=== PATIENT | male | born 1985 | race Two or more races ===

== ENCOUNTER 2017-08-30 22:05 | Emergency (ER) | payer OTHER ==
[~2017-08-30] VITALS: Ht 180.3 cm; Wt 59.0 kg
[2017-08-30] MEDS ORDERED: FLUO10 PO (22:16)
[2017-08-30] MEDS ORDERED: ONDA4ODT MM (22:16)
[2017-08-30] MEDS ORDERED: PALI3TAB (22:16)
[2017-08-30 22:47] LABS: Influenza A Negative (NEGATIVE); Influenza B Positive (NEGATIVE)
[2017-08-30 22:49] LABS: BASOPHILS ABSOLUTE AUTO 0.01 K/mm3 (0.00-0.23); BASOPHILS PERCENT AUTO 0 % (0-2); EOSINOPHILS ABSOLUTE AUTO 0.06 K/mm3 (0.00-0.68); EOSINOPHILS PERCENT AUTO 1 % (0-6); Hematocrit 37.3 % (37.0-53.0); Hemoglobin 12.3 g/dL (13.5-17.5); IMMATURE GRAN ABSOLUTE AUTO 0.03 K/mm3 (0.00-0.10); IMMATURE GRAN PERCENT AUTO 0 % (0-1); LYMPHOCYTES ABSOLUTE AUTO 0.45 K/mm3 (0.84-5.20); LYMPHOCYTES PERCENT AUTO 5 % (21-46); MONOCYTES ABSOLUTE AUTO 1.37 K/mm3 (0.16-1.47); MONOCYTES PERCENT AUTO 16 % (4-13); Mean Corpuscular HGB 31.1 pg (26.0-34.0); Mean Corpuscular Volume 94 fL (80-100); Mean Platelet Volume 10.1 fL (9.1-12.4); NEUTROPHILS ABSOLUTE AUTO 6.81 K/mm3 (1.96-9.15); NEUTROPHILS PERCENT AUTO 78 % (41-73); Platelet Count 265 K/mm3 (150-400); RDW Coefficient Variation 12.2 % (11.7-14.2); RDW Standard Deviation 42.5 fL (35.1-46.3); Red Blood Cell Count 3.95 M/mm3 (4.30-5.90); White Blood Cell Count 8.73 K/mm3 (4.00-11.30)
[2017-08-30 23:06] LABS: Alanine Aminotransfer (ALT/SGP 21 U/L (12-78); Albumin, Blood 3.7 g/dL (3.4-5.0); Albumin/Globulin Ratio 1.1 (0.8-1.8); Alk Phos 48 U/L (50-136); Anion Gap 6 mmol/L (6-16); Aspartate Aminotrans (AST/SGOT 16 U/L (12-37); Bilirubin, Total 0.4 mg/dL (0.1-1.0); Blood Urea Nitrogen 9 mg/dL (8-24); Bun/Creatinine Ratio 9.1 (12.0-20.0); CO2, Blood 29 mmol/L (21-32); Calcium, Blood 8.4 mg/dL (8.5-10.1); Chloride, Blood 104 mmol/L (98-108); Creatinine, Blood 0.99 mg/dL (0.60-1.20); Globulin, Blood 3.4 g/dL (2.2-4.0); Glomerular Filtration Rate >60 (60-); Glucose, Blood 109 mg/dL (70-99); Potassium, Blood 3.6 mmol/L (3.5-5.5); Sodium, Blood 139 mmol/L (136-145); Total Protein, Blood 7.1 g/dL (6.4-8.2)
[2017-08-30] MEDS ORDERED: Tylenol325 MG PO (23:48)
[2017-08-30] MEDS ORDERED: Tamiflu75 MG PO (23:48)
== END 2017-08-30 23:53 | disposition home or self-care (01) ==
LOC: ER 22:05
PROVIDERS: Emergency Medicine
DX: J10.1 Influenza due to other identified influenza virus with other respiratory manifestations (principal); Z79.899 Other long term (current) drug therapy
CPT/HCPCS: 36415; 71046; 80053; 85025; 87804; 99283

== ENCOUNTER 2018-02-13 15:48 | Emergency (ER) | payer OTHER ==
[~2018-02-13] VITALS: Ht 180.3 cm; Wt 54.4 kg
[~2018-02-13 15:48] MED LIST: FLUO10 PO; ONDA4ODT MM; PALI3TAB PO; Tamiflu75 MG PO; Tylenol325 MG PO
[2018-02-13] MEDS ORDERED: DULO30 (16:26)
== END 2018-02-13 18:00 | disposition home or self-care (01) ==
LOC: ER 15:48
DX: F32.9 Major depressive disorder, single episode, unspecified (principal)
CPT/HCPCS: 99284

== ENCOUNTER 2018-05-29 16:10 | Emergency (ER) | payer OTHER ==
[~2018-05-29] VITALS: Ht 180.3 cm; Wt 54.5 kg
[~2018-05-29 16:10] MED LIST changes: +DULO30
[2018-05-29] MEDS ORDERED: ALBU90OI INH (18:20)
== END 2018-05-29 18:30 | disposition home or self-care (01) ==
LOC: ER 16:10
DX: J45.909 Unspecified asthma, uncomplicated (principal); Z79.899 Other long term (current) drug therapy
CPT/HCPCS: 71046; 99285-25

== ENCOUNTER → 2020-04-01 | Outpatient (CLI) | payer OTHER ==
[~2020-04-01] MED LIST changes: +ALBU90OI INH
== END | disposition home or self-care (01) ==
LOC: LAB 19:13 → LAB SHORT 19:13
DX: Z20.828 Contact with and (suspected) exposure to other viral communicable diseases (principal)
CPT/HCPCS: U0003

== ENCOUNTER → 2020-05-05 | Outpatient (CLI) | payer OTHER ==
[2020-05-05 19:56] LABS: BASOPHILS ABSOLUTE AUTO 0.02 K/mm3 (0.00-0.23); BASOPHILS PERCENT AUTO 0 % (0-2); EOSINOPHILS ABSOLUTE AUTO 0.04 K/mm3 (0.00-0.68); EOSINOPHILS PERCENT AUTO 1 % (0-6); Hematocrit 46.5 % (37.0-53.0); Hemoglobin 15.3 g/dL (13.5-17.5); IMMATURE GRAN ABSOLUTE AUTO 0.03 K/mm3 (0.00-0.10); IMMATURE GRAN PERCENT AUTO 0 % (0-1); LYMPHOCYTES ABSOLUTE AUTO 3.05 K/mm3 (0.84-5.20); LYMPHOCYTES PERCENT AUTO 42 % (21-46); MONOCYTES ABSOLUTE AUTO 0.58 K/mm3 (0.16-1.47); MONOCYTES PERCENT AUTO 8 % (4-13); Mean Corpuscular HGB 30.1 pg (26.0-34.0); Mean Corpuscular HGB Conc 32.9 g/dL (31.5-36.5); Mean Corpuscular Volume 92 fL (80-100); Mean Platelet Volume 10.2 fL (9.1-12.4); NEUTROPHILS ABSOLUTE AUTO 3.58 K/mm3 (1.96-9.15); NEUTROPHILS PERCENT AUTO 49 % (41-73); Platelet Count 342 K/mm3 (150-400); RDW Coefficient Variation 12.2 % (11.7-14.2); RDW Standard Deviation 41.5 fL (35.1-46.3); Red Blood Cell Count 5.08 M/mm3 (4.30-5.90)
[2020-05-05 20:15] LABS: Alanine Aminotransfer (ALT/SGP 23 U/L (12-78); Albumin, Blood 3.8 g/dL (3.4-5.0); Alk Phos 67 U/L (50-136); Anion Gap 7 mmol/L (6-16); Aspartate Aminotrans (AST/SGOT 19 U/L (12-37); Bilirubin, Total 0.5 mg/dL (0.1-1.0); Blood Urea Nitrogen 12 mg/dL (8-24); Bun/Creatinine Ratio 15.2 (12.0-20.0); CO2, Blood 24 mmol/L (21-32); Calcium, Blood 8.9 mg/dL (8.5-10.1); Chloride, Blood 108 mmol/L (98-108); Creatinine, Blood 0.79 mg/dL (0.60-1.20); Globulin, Blood 3.7 g/dL (2.2-4.0); Glomerular Filtration Rate >60 (60-); Glucose, Blood 92 mg/dL (70-99); Potassium, Blood 4.1 mmol/L (3.5-5.5); Sodium, Blood 139 mmol/L (136-145); Total Protein, Blood 7.5 g/dL (6.4-8.2)
[2020-05-05 20:16] LABS: Percent Saturation 24.5 % (20.0-50.0)
== END | disposition home or self-care (01) ==
LOC: LAB EV 19:31 → LAB SHORT 19:31
PROVIDERS: Chiropractor
DX: E61.1 Iron deficiency (principal); R00.2 Palpitations
CPT/HCPCS: 80053; 82728; 83540; 83550; 84443; 85025

== ENCOUNTER 2020-10-10 15:59 | Emergency (ER) | payer OTHER ==
[~2020-10-10] VITALS: Ht 180.3 cm; Wt 56.7 kg
== END 2020-10-10 19:44 | disposition home or self-care (01) ==
LOC: ER 15:59
DX: R51.9 Headache, unspecified (principal); R19.7 Diarrhea, unspecified; R11.0 Nausea; Z79.899 Other long term (current) drug therapy
CPT/HCPCS: 99283

== ENCOUNTER → 2020-11-30 | Outpatient (CLI) | payer OTHER ==
[2020-11-30 11:34] LABS: Campylobacter Sp Not Detected (NOT DETECT)
[2020-11-30 11:35] LABS: Adenovirus F 40/41 Not Detected (NOT DETECT); Astrovirus Not Detected (NOT DETECT); Cryptosporidium Not Detected (NOT DETECT); Cyclospora Cayetanensis Not Detected (NOT DETECT); E. Coli O157 Not Detected (NOT DETECT); Entamoeba Histolytica Not Detected (NOT DETECT); Enteroaggregative E. coli-EAEC Not Detected (NOT DETECT); Enteropathogenic E. coli-EPEC Not Detected (NOT DETECT); Enterotoxigenic E. coli-ETEC Not Detected (NOT DETECT); Giardia Lamblia Not Detected (NOT DETECT); Norovirus GI/GII Not Detected (NOT DETECT); Plesiomonas Shigelloides Not Detected (NOT DETECT); Rotavirus A Not Detected (NOT DETECT); Salmonella Sp Not Detected (NOT DETECT); Sapovirus Not Detected (NOT DETECT); Shiga Toxin-prod E. coli-STEC Not Detected (NOT DETECT); Shigella/Enteroin E. coli-EIEC Not Detected (NOT DETECT); Vibrio Cholerae Not Detected (NOT DETECT); Vibrio Sp Not Detected (NOT DETECT); Yersinia Enterocolitica Not Detected (NOT DETECT)
== END | disposition home or self-care (01) ==
LOC: LAB 08:42 → LAB SHORT 08:42
PROVIDERS: Family Medicine
DX: R19.7 Diarrhea, unspecified (principal)
CPT/HCPCS: 0097U

== ENCOUNTER → 2020-12-29 | Outpatient (CLI) | payer OTHER | END | disposition home or self-care (01) | LOC: LAB EV 08:08 → LAB SHORT 08:08 | DX: K29.70 Gastritis, unspecified, without bleeding (principal) | CPT/HCPCS: 87338 ==

== ENCOUNTER → 2021-04-17 | Outpatient (CLI) | payer OTHER ==
[2021-04-17 15:46] LABS: BASOPHILS ABSOLUTE AUTO 0.01 K/mm3 (0.00-0.23); BASOPHILS PERCENT AUTO 0 % (0-2); EOSINOPHILS ABSOLUTE AUTO 0.04 K/mm3 (0.00-0.68); EOSINOPHILS PERCENT AUTO 1 % (0-6); Hematocrit 43.9 % (37.0-53.0); Hemoglobin 14.6 g/dL (13.5-17.5); IMMATURE GRAN ABSOLUTE AUTO 0.01 K/mm3 (0.00-0.10); IMMATURE GRAN PERCENT AUTO 0 % (0-1); LYMPHOCYTES ABSOLUTE AUTO 1.65 K/mm3 (0.84-5.20); LYMPHOCYTES PERCENT AUTO 41 % (21-46); MONOCYTES ABSOLUTE AUTO 0.35 K/mm3 (0.16-1.47); MONOCYTES PERCENT AUTO 9 % (4-13); Mean Corpuscular HGB 30.7 pg (26.0-34.0); Mean Corpuscular HGB Conc 33.3 g/dL (31.5-36.5); Mean Corpuscular Volume 92 fL (80-100); Mean Platelet Volume 10.9 fL (9.1-12.4); NEUTROPHILS ABSOLUTE AUTO 1.97 K/mm3 (1.96-9.15); NEUTROPHILS PERCENT AUTO 49 % (41-73); Platelet Count 323 K/mm3 (150-400); RDW Coefficient Variation 12.2 % (11.7-14.2); Red Blood Cell Count 4.75 M/mm3 (4.30-5.90); White Blood Cell Count 4.03 K/mm3 (4.00-11.30)
[2021-04-17 16:01] LABS: Alanine Aminotransfer (ALT/SGP 26 U/L (12-78); Albumin, Blood 3.7 g/dL (3.4-5.0); Albumin/Globulin Ratio 0.9 (0.8-1.8); Alk Phos 72 U/L (50-136); Anion Gap 3 mmol/L (6-16); Aspartate Aminotrans (AST/SGOT 27 U/L (12-37); Bilirubin, Total 0.7 mg/dL (0.1-1.0); Blood Urea Nitrogen 10 mg/dL (8-24); Bun/Creatinine Ratio 12.5 (12.0-20.0); CO2, Blood 29 mmol/L (21-32); Calcium, Blood 8.7 mg/dL (8.5-10.1); Chloride, Blood 109 mmol/L (98-108); Globulin, Blood 3.9 g/dL (2.2-4.0); Glomerular Filtration Rate >60 (60-); Glucose, Blood 82 mg/dL (70-99); Potassium, Blood 4.3 mmol/L (3.5-5.5); Sodium, Blood 141 mmol/L (136-145); Total Protein, Blood 7.6 g/dL (6.4-8.2)
== END | disposition home or self-care (01) ==
LOC: LAB SHORT 12:26 → LAB 12:26
PROVIDERS: Family Medicine
DX: E55.9 Vitamin D deficiency, unspecified (principal); L85.3 Xerosis cutis; Z86.59 Personal history of other mental and behavioral disorders
CPT/HCPCS: 80053; 82306; 84443; 85025

== ENCOUNTER 2021-07-31 21:15 | Emergency (ER) | payer OTHER ==
[~2021-07-31] VITALS: Ht 180.3 cm; Wt 59.0 kg
== END 2021-07-31 23:24 | disposition home or self-care (01) ==
LOC: ER 21:15
DX: S66.911A Strain of unspecified muscle, fascia and tendon at wrist and hand level, right hand, initial encounter (principal); W21.06XA Struck by volleyball, initial encounter
CPT/HCPCS: 73110; 99283-25

== ENCOUNTER 2022-04-02 21:23 | Emergency (ER) | payer OTHER ==
[~2022-04-02] VITALS: Ht 180.3 cm; Wt 56.7 kg
[2022-04-02] MEDS ORDERED: IBUP600 PO (22:32)
== END 2022-04-02 22:37 | disposition home or self-care (01) ==
LOC: ER 21:23
DX: S92.354A Nondisplaced fracture of fifth metatarsal bone, right foot, initial encounter for closed fracture (principal); X50.1XXA Overexertion from prolonged static or awkward postures, initial encounter; Y93.68 Activity, volleyball (beach) (court)
CPT/HCPCS: 73630